=== PATIENT | female | born 1975 | race Caucasian/White ===

== ENCOUNTER 2019-11-15 19:15 | Emergency (ER) | payer OTHER, SELFPAY ==
--- NOTE | ~2019-11-15 | XR_ITS ---
EXAMINATION: XR chest 2V EXAM DATE: 11/15/2019 20:07 INDICATION: Pleuritic pain, shortness of breath. TECHNIQUE: Frontal and lateral projections of the chest obtained and reviewed. There is no prior bernardo dy for comparison. FINDINGS: The lungs are clear. There are no pleural effusions. The cardiomediastinal silhouette is within normal limits. There is no pneumothorax suspected. The bones and soft tissues are unremarkab le. IMPRESSION: No acute cardiopulmonary findings. Reviewed, dictated and finalized at location G.
--- NOTE | 2019-11-15 19:30 | ED.BACK ---
HPI - Back Pain/Injury General Chief Complaint: Back Pain/Injury Stated Complaint: neck and back pain Time Seen by Provider: 11/15/19 19:30 Source: patient Mode of arrival: ambulatory Limitations: no limitations History of Present Illness HPI Narrative: 44-year-old woman comes in today complaining of pain in her left upper back and shoulder that is worse with movement, taking a deep breath, and is associated with the pain in her left arm and left leg. She denies any recent falls or injuries. 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 She states she also has bilateral hand pain from carpal tunnel syndrome. MD elicited complaint: back pain Pertinent past history: prior back pain Onset (ago): day(s) Timing: constant Severity: moderate Similar Symptoms Previously: Yes Quality: sharp Location: thoracic spine and left upper back Radiation: other ( Left arm) Exacerbating factors: supine positioning and deep breaths Relieving factors: sitting upright Work related injury: No Related Data Home Medications Medication Instructions Recorded Confirmed meloxicam 15 mg PO DAILY PRN 11/15/19 11/15/19 trazodone 50 mg PO HS PRN 11/15/19 11/15/19 Allergies Allergy/AdvReac Type Severity Reaction Status Date / Time No Known Allergies Allergy Unverified 11/27/17 07:17 Review of Systems Constitutional: Constitutional: Denies chills and Denies fever(s) ENT: Denies dysphagia, Denies nasal congestion and Denies sore throat Cardiovascular: Cardiovascular: Denies chest pain and Denies radiating jaw, neck or arm pain Respiratory: Respiratory: Reports as per HPI, Denies cough, Reports dyspnea and Denies wheezing Gastrointestinal: Gastrointestinal: Denies abdominal pain, Denies nausea and Denies vomiting Integumentary/Breasts: Skin/Breast: Denies pruritus, Denies erythema and Denies rash Neurologic: Denies vertigo, Denies dizziness, Denies syncope and Denies focal weakness Hematologic/Lymphatic: Hematologic/Lymphatic: Denies easy bleeding and Denies easy bruising Allergic/Immunologic: Allergic/Immunologic: Denies lip swelling and Denies wheezing PMFSH Surgical History Surgical History (Updated 11/15/19 @ 19:44 by Marty Bass MD) H/O knee surgery H/O: hysterectomy Social History Social History Smoking status: Current every day smoker Tobacco type: cigarettes Alcohol intake: never Substance use: never Living arrangements: with family Exam Const: General: healthy appearing and alert Nutritional Appearance: obese Orientation/consciousness: patient oriented x3 Other: moderate acute distress. HENMT: Mouth: Yes moist mucous membranes Eyes: Conjunctivae: conjunctivae normal Pupils: Equal, round and reactive pupils present EOM: EOMs intact bilaterally Neck: Neck: normal visual inspection Resp: Effort & Inspection: normal respiratory effort and not labored Auscultation: clear to auscultation bilaterally, no rales, no rhonchi and no wheezes Cardio: Rate: regular rate Rhythm: regular rhythm Heart sounds: no murmurs Back/Spine/Pelvis: Other: No tenderness to palpation of the cervical or thoracic spine. Mild tenderness palpation of the left supraspinatus muscle group and left trapezius. There is no erythema, swelling, or abnormal contour. Skin: General skin exam: normal color, no jaundice and no pallor Rashes: no rashes Neuro: General: patient oriented x3, moves all extremities, no focal motor deficits and CN's II-XI intact bilaterally Speech: normal speech Extrem: General: normal to inspection and no clubbing, cyanosis or edema Psych: Appearance: grossly normal and well kempt Mental Status: mental status grossly normal Affect: normal affect Attitude: cooperative Thought content: Yes Normal thought content present Course Vital Signs Vital signs: Vital Signs Temperature 36
[2019-11-15 19:31] VITALS: BP 171/106; PULSE 89; RESP 18; TEMP 36.6; O2SAT 97
--- NOTE | 2019-11-15 19:41 | ECG_ITS ---
Measurements Intervals [place] Rate: 86 P: 55 ID: [id number] QRS: 43 QRSD: 81 T: 50 QT: 358 QTc: 428 Interpretive Statements SINUS RHYTHM BASELINE ARTIFACT- I, II, III, AVR, AVL, AVF NORMAL ECG Electronically Signed On 11-16-2019 7:06:08 CDT by Esequiel Cochran D.O.
[2019-11-15 20:25] LABS: Basophils Absolute Auto 0.05 K/mm3 (0.00-0.10); Basophils Percent Auto 0.4 % (0.0-1.0); Eosinophils Absolute Auto 0.33 K/mm3 (0.02-0.50); Eosinophils Percent Auto 2.5 % (1.0-6.0); Hematocrit 45.6 % (35.0-49.0); Hemoglobin 15.2 g/dL (12.0-15.0); Immature Granulocyte Absolute 0.06 K/mm3 (0.00-0.00); Immature Granulocyte Percent A 0.5 % (0.0-0.0); Lymphocytes Absolute Auto 3.12 K/mm3 (1.10-4.50); Lymphocytes Percent Auto 23.6 % (18.0-42.0); Mean Corpuscular HGB Conc 33.3 g/dL (32.0-36.0); Mean Corpuscular Hemoglobin 31.3 pg (27.0-31.0); Mean Platelet Volume 10.8 fl (9.2-11.8); Monocytes Absolute Auto 0.91 K/mm3 (0.10-0.90); Monocytes Percent Auto 6.9 % (2.0-11.0); Neutrophils Absolute Auto 8.8 K/mm3 (1.7-7.2); Neutrophils Percent Auto 66.1 % (50.0-70.0); Platelet Count Result 248 K/mm3 (150-420); Red Blood Count 4.85 M/mm3 (4.20-5.40); Red Cell Distribution Width 14.3 % (11.6-14.4); White Blood Count 13.2 K/mm3 (4.8-10.8)
[2019-11-15 20:36] VITALS: BP 129/75; PULSE 92; RESP 18; O2SAT 98
[2019-11-15 20:41] LABS: D Dimer 0.39 mg/L (0.19-0.50)
[2019-11-15 20:43] LABS: Alanine Aminotransferase 27 U/L (14-59); Albumin Level 3.4 g/dL (3.4-5.0); Alkaline Phosphatase 80 U/L (46-116); Anion Gap 13.9 mmol/L (7-16); Aspartate Amino Transferase 17 U/L (15-37); Bilirubin,Total 0.1 mg/dL (0.00-1.00); Blood Urea Nitrogen 14 mg/dL (7-18); Calcium 8.6 mg/dL (8.5-10.1); Carbon Dioxide 27 mmol/L (21-32); Chloride 106 mmol/L (98-108); Estimated Glomerular Filt Rate > 60; Glucose 89 mg/dL (70-99); Osmolality Calculated 295 mOsm/kg (285-295); Potassium 3.9 mmol/L (3.5-5.1); Sodium 143 mmol/L (136-145); Total Protein 7.3 g/dL (6.4-8.2); Troponin I < 0.02 ng/mL (0.00-0.056)
== END 2019-11-15 20:58 | disposition home or self-care (01) ==
PROVIDERS: Emergency Provider Emergency Medicine; PCP Family Medicine
DX: M54.6 Pain in thoracic spine (principal)
CPT/HCPCS: 36415; 71046; 80053; 84484; 85025; 85380; 93005; 99284

== ENCOUNTER 2020-09-15 15:07 | Emergency (ER) | payer OTHER, SELFPAY ==
--- NOTE | ~2020-09-15 | XR_ITS ---
EXAMINATION: XR ankle RT 2V DATE: 09/15/2020 15:49 INDICATION: Right ankle injury. TECHNIQUE: 2 views of right ankle were obtained. COMPARISON: None. FINDINGS: Bone alignment is normal. No fracture. Joint spaces are well maintained. There are enthesop hytes at the posterior and plantar aspects of calcaneal tuberosity. IMPRESSION: 1. No fracture. Reviewed, dictated and finalized at location A. [employer] OFFICER IMPRESSION: 1. No fracture.
--- NOTE | ~2020-09-15 | XR_ITS ---
XR knee RT 2V 09/15/2020 15:50 Indication: Right knee pain after fall Procedure: 2 views right knee Comparison: No prior studies for comparison. Findings: No acute fracture or traumatic malalignment. No significant joint effusion. No joint space narrowing. No foreign bodies. Impression: 1: No acute bone or joint abnormality. Reviewed, dictated and finalized at location A. [employer] Impression: 1: No acute bone or joint abnormality.
[2020-09-15 15:20] VITALS: BP 140/99; PULSE 87; RESP 16; TEMP 36.7; O2SAT 98
[2020-09-15] MEDS: KETOROLAC (*BKC) 60 MG/2 ML VIAL IM (15:31)
--- NOTE | 2020-09-15 15:58 | ED.LOWEXIN ---
HPI - Extremity Injury (Lower) General Chief Complaint: Extremity Injury, Lower Stated Complaint: R leg pain Source: patient Mode of arrival: wheelchair Limitations: no limitations History of Present Illness HPI Narrative: this is a 45-year-old female presents with some right knee pain posterior knee tenderness after she twisted it and heard a popping sound currently has decreased range of motion although there is no swelling or bruising no calf pain with palpation does translate and Hernando into her right ankle pain with palpation. Currently no swelling no bruising and has good range of motion although it is tender with movement and with palpation. complaint: knee injury Injury: Right: knee ( Tender posteriorly after she heard a snap earlier today when she twisted) Related Data Home Medications Medication Instructions Recorded Confirmed trazodone 50 mg PO HS PRN 11/15/19 09/15/20 tramadol 50 mg PO DAILY 09/15/20 09/15/20 Allergies Allergy/AdvReac Type Severity Reaction Status Date / Time No Known Allergies Allergy Unverified 11/27/17 07:17 Review of Systems Review of Systems: All systems reviewed & are unremarkable except as noted in HPI and below PMFSH Past Medical History Medical History Patient denies medical problems Surgical History Surgical History H/O knee surgery H/O: hysterectomy Social History Social History Smoking status: Current every day smoker Tobacco type: cigarettes Alcohol intake: never Substance use: never Exam Const: General: no acute distress and alert Orientation/consciousness: patient oriented x3 Limitations: altered mental status HENMT: Head: normal to inspection Eyes: Pupils: Equal, round and reactive pupils present Neck: Neck: normal visual inspection Chest: Chest palpation & inspection: normal inspection of the chest Resp: Effort & Inspection: normal respiratory effort Auscultation: clear to auscultation bilaterally Cardio: Rate: regular rate Rhythm: regular rhythm GI: GI Palp: Yes Soft to palpation Percussion: Yes normal to percussion Back/Spine/Pelvis: Back: no CVA tenderness Skin: General skin exam: normal color Rashes: no rashes Neuro: General: patient oriented x3 and moves all extremities Extrem: Other: tender posterior right knee with palpation has good range of motion although tender with movement with a negative drawers ligating latch min sign. Psych: Appearance: grossly normal Mental Status: mental status grossly normal Affect: normal affect Course Course Emergency Course: Patient received IM Toradol pain has improved, reviewed x-ray findings which were negative for fractures will place an Ant wrap and will have patient follow-up with her primary care physician in week for further evaluation and treatment. Critical Care Time Critical Care Time Critical Care Time: No Discharge Plan Discharge Clinical Impression: Knee sprain Qualifiers: Encounter type: initial encounter Involved ligament of knee: unspecified ligament Laterality: right Qualified Code(s): S83.91XA - Sprain of unspecified site of right knee, initial encounter Patient Disposition: Home, Self-Care Condition: Stable Instructions: Knee Sprain (ED) Additional Instructions: continue Ant wrap take Tylenol or ibuprofen as needed for pain keep elevated while at rest can use ice to affected area and follow-up with primary care physician in 1 week for further assessment. Prescriptions: New tramadol [Ultram] 50 mg tablet 50 mg PO Q6H PRN (Reason: pain) Qty: 20 RF: 0 No Action tramadol 50 mg tablet 50 mg PO DAILY RF: 0 trazodone 50 mg tablet 50 mg PO HS PRN (Reason: Insomnia) RF: 0 Follow-up/Referrals: UNKNOWN,DOCTOR [Primary Care Provider] -
[2020-09-15 16:18] VITALS: RESP 16
== END 2020-09-15 16:15 | disposition home or self-care (01) ==
PROVIDERS: Emergency Provider Emergency Medicine
DX: S83.91XA Sprain of unspecified site of right knee, initial encounter (principal); X50.1XXA Overexertion from prolonged static or awkward postures, initial encounter
CPT/HCPCS: 73560; 73600; 96372; 99283; 99284; J1885

== ENCOUNTER 2021-01-06 13:31 | Outpatient (CLI) | payer OTHER, SELFPAY ==
[2021-01-06 14:05] LABS: SARS-CoV-2 Ag Negative (Negative)
== END 2021-01-06 13:32 | disposition home or self-care (01) ==
LOC: CHSLAB 13:34
PROVIDERS: PCP Family Medicine; Visit Provider Family Medicine
DX: J02.9 Acute pharyngitis, unspecified (principal); Z20.822 Contact with and (suspected) exposure to COVID-19
CPT/HCPCS: 87426; C9803

== ENCOUNTER 2023-08-27 12:18 | Emergency (ER) | payer OTHER, SELFPAY ==
--- NOTE | ~2023-08-27 | XR_ITS ---
EXAMINATION: XR chest 1V portable INDICATION: Chest pain TECHNIQUE: Portable AP chest at 1251 hours COMPARISON: 11/15/2019 FINDINGS: The lungs are free of acute opacities. No pleural effusion or pneumothorax. The cardiomedia stinal silhouette is normal. IMPRESSION: 1. No acute cardiopulmonary abnormality. Reviewed, dictated and finalized at location L. WEIGHER
[2023-08-27 12:24] VITALS: BP 133/86; PULSE 93; RESP 17; TEMP 37.2; O2SAT 94
--- NOTE | 2023-08-27 12:25 | ECG_ITS ---
Measurements Intervals [place] Rate: 91 P: 75 [place]: 149 QRS: 81 QRSD: 71 T: 73 QT: 318 QTc: 392 Interpretive Statements SINUS RHYTHM LOW QRS VOLTAGE IN PRECORDIAL LEADS [QRS DEFLECTION < 1.0 mV IN CHEST LEADS] COMPARED TO ECG 11/15/2019 19:49:06 NO SIGNIFICANT CHANGES Electronically Signed On 08-27-2023 15:16:48 REGISTERED MAIL CLERK by Trinidad Pittman M.D.
--- NOTE | 2023-08-27 12:36 | ED.GENADULT ---
HPI - General Adult General Chief complaint: Upper Respiratory Infection Stated complaint: URI Time Seen by Provider: 08/27/23 12:24 History of Present Illness HPI narrative: Natali presented to the ED with a few days of worsening chest congestion, cough, mild dyspnea, fevers up to 101 and fatigue. She went to [place] yesterday and reportedly had a negative workup. She denied exertional chest pain, vomiting and syncope. Related Data Home Medications Medication Instructions Recorded Confirmed trazodone 50 mg tablet 50 mg PO HS PRN Insomnia 11/15/19 08/27/23 albuterol sulfate 90 mcg/actuation 2 puff inhalation QID 08/27/23 08/27/23 aerosol inhaler amlodipine 5 mg tablet 5 mg PO DAILY 08/27/23 08/27/23 buspirone 5 mg tablet 5 mg PO DAILY 08/27/23 08/27/23 cholecalciferol (vitamin D3) 25 1,000 unit PO DAILY 08/27/23 08/27/23 mcg (1,000 unit) tablet gabapentin 300 mg capsule 300 mg PO TID 08/27/23 08/27/23 hydrochlorothiazide 25 mg tablet 25 mg PO DAILY 08/27/23 08/27/23 hydrocodone 5 mg-acetaminophen 325 1 tablet PO QID PRN Pain (Scale 08/27/23 08/27/23 mg tablet Score 7-10) ibuprofen 600 mg tablet 600 mg PO TID PRN Pain (Scale 08/27/23 08/27/23 Score 4-6) losartan 50 mg tablet 50 mg PO DAILY 08/27/23 08/27/23 meloxicam 15 mg tablet 15 mg PO DAILY 08/27/23 08/27/23 Allergies Allergy/AdvReac Type Severity Reaction Status Date / Time meperidine [From Demerol] Allergy Unknown Verified 08/27/23 12:20 Review of Systems Review of Systems: All systems reviewed & are unremarkable except as noted in HPI and below PMFSH Past Medical History Medical History (Updated 08/27/23 @ 13:22 by Ty Iqbal DO) Knee sprain Patient denies medical problems Surgical History Surgical History H/O knee surgery H/O: hysterectomy Social History Social History Smoking status: Current every day smoker Tobacco type: cigarettes Alcohol intake: never Substance use: never Living arrangements: with family Exam Const: General: cooperative, healthy appearing, comfortable, no acute distress, well developed, alert, awake and Physically active Orientation/consciousness: oriented to person, oriented to place and oriented to time HENMT: Head: normal to inspection, normocephalic and atraumatic Ears: hearing grossly normal bilaterally and external ears normal Face/Nose/Sinus: Normal external nose present Eyes: General: appearance normal, both eyes and all related structures Periorbital: periorbital findings normal Sclera: sclerae normal Pupils: Equal, round and reactive pupils present Neck: Neck: normal visual inspection Chest: Chest palpation & inspection: normal inspection of the chest Resp: Effort & Inspection: normal respiratory effort, able to speak in complete sentences and no respiratory distress Auscultation: clear to auscultation bilaterally Other: Diffuse wheezing in all lung tyson Cardio: Jugular venous distension: no JVD Rate: regular rate Rhythm: regular rhythm GI: Inspection: normal to inspection GI Palp: Yes Soft to palpation Auscultation: normal bowel sounds Skin: General skin exam: normal color and no rashes or lesions noted Neuro: General: oriented to person, oriented to place and oriented to time Cranial nerves: Yes Equal, round and reactive pupils present Extrem: General: normal to inspection Course Course Emergency Course: Ordered labs, EKG, and CXR EKG showed a sinus rhythm with a rate of 91, normal axis and no ST elevation/depression EXAMINATION: XR chest 1V portable INDICATION: Chest pain TECHNIQUE: Portable AP chest at 1251 hours COMPARISON: 11/15/2019 FINDINGS: The lungs are free of acute opacities. No pleural effusion or pneumothorax. The cardiomediastinal silhouette is normal. IMPRESSION: 1. No acute cardiopulmonary abnormality. Influenza A was
[2023-08-27 12:46] LABS: Hematocrit 46.9 % (35.0-49.0); Hemoglobin 15.5 g/dL (12.0-15.0); Mean Corpuscular Hemoglobin 30.3 pg (27.0-31.0); Mean Corpuscular Volume 91.6 fL (78.0-102.0); Mean Platelet Volume 11.1 fl (9.2-11.8); Platelet Count Result 183 K/mm3 (150-420); Red Blood Count 5.12 M/mm3 (4.20-5.40); Red Cell Distribution Width 13.7 % (11.6-14.4); White Blood Count 6.7 K/mm3 (4.8-10.8)
[2023-08-27 13:03] LABS: Prothrombin Time 10.6 Seconds (9.50-12.10)
[2023-08-27] MEDS: AZITHROMYCIN 250 MG TABLET 500 MG PO (13:06)
[2023-08-27 13:07] LABS: Alanine Aminotransferase 27 U/L (14-59); Albumin Level 2.9 g/dL (3.4-5.0); Alkaline Phosphatase 57 U/L (46-116); Anion Gap 12 mmol/L (8-16); Aspartate Amino Transferase 28 U/L (15-37); Band Neutrophils Percent 0 % (0-6); Basophils Absolute Manual 0.06 K/mm3 (0-0.1); Basophils Percent Manual 1 % (0-1); Bilirubin,Total 0.2 mg/dL (0.00-1.00); Blood Urea Nitrogen 15 mg/dL (7-18); Carbon Dioxide 25 mmol/L (21-32); Chloride 103 mmol/L (98-108); Eosinophils Absolute Manual 0.06 K/mm3 (0.02-0.5); Eosinophils Percent Manual 1 % (1-6); Estimated CRCL calculation 76 ml/min; Estimated Glomerular Filt Rate 54; Glucose 109 mg/dL (70-99); Lipase 21 U/L (16-77); Lymphocytes Percent Manual 24 % (18-44); Monocytes Percent Manual 3 % (3-9); Neutrophils Absolute Manual 4.75 K/mm3 (1.7-7.2); Neutrophils Percent Manual 71 % (46-73); Osmolality Calculated 291 mOsm/kg (285-295); Platelet Estimate Adequate (Adequate); Potassium 4.1 mmol/L (3.5-5.1); Sodium 140 mmol/L (136-145); Total Cells Counted 100; Total Protein 6.9 g/dL (6.4-8.2); Troponin I 9.4 ng/L (0.00-60.4)
[2023-08-27] MEDS: predniSONE 40 MG, predniSONE 10 MG 50 MG PO (13:07)
[2023-08-27] MEDS: IPRATROPIUM 0.5 MG/ALBUTEROL SULFATE 2.5 MG AMPUL.NEB 3 ML INHALATION (13:08)
[2023-08-27 13:11] VITALS: PULSE 87; RESP 18; O2SAT 96
[2023-08-27 13:13] LABS: SARS-CoV-2 RNA PCR Negative (Negative)
[2023-08-27 13:14] LABS: Influenza A QL RT-PCR Positive (Negative); Influenza B QL RT-PCR Negative (Negative); RSV RNA, RT-PCR Negative (Negative)
[2023-08-27 13:17] VITALS: PULSE 88; RESP 18; TEMP 37.9; O2SAT 94
[2023-08-27 13:20] VITALS: PULSE 89; RESP 22; O2SAT 100
== END 2023-08-27 13:33 | disposition home or self-care (01) ==
PROVIDERS: Emergency Provider Family Medicine; PCP Family Medicine
DX: J10.1 Influenza due to other identified influenza virus with other respiratory manifestations (principal); J44.1 Chronic obstructive pulmonary disease with (acute) exacerbation; F17.210 Nicotine dependence, cigarettes, uncomplicated; Z79.899 Other long term (current) drug therapy; Z79.1 Long term (current) use of non-steroidal anti-inflammatories (NSAID); Z79.891 Long term (current) use of opiate analgesic; Z20.822 Contact with and (suspected) exposure to COVID-19
CPT/HCPCS: 36415; 71045; 80053; 83690; 84484; 85025; 85610; 87637; 93005; 94640; 99284; A9270; J7512